=== PATIENT | female | born 1995 | race Two or more races ===

== ENCOUNTER 2020-11-05 13:01 | Emergency (ER) | payer SELFPAY ==
[~2020-11-05] VITALS: Ht 157.5 cm; Wt 54.0 kg
[2020-11-05 13:45] VITALS: BP 125/64
--- NOTE | 2020-11-05 13:52 | PHYS DOC ---
General Adult EDM: Chief Complaint: VAGINAL BLEEDING HPI: HPI: Patient is a 25 year old female 1 para 0 currently 8 weeks presenting today complaining of vaginal bleeding in , symptoms began at 11 AM this morning. Patient denies any injuries. Reports slight abdominal cramping. Denies any nausea, vomiting, diarrhea. Denies any fever, urgency frequency or dysuria. Patient is Swahili speaking and interpretation is provided by me (JOJO CARPENTER APRN) Review of Systems: Review of Systems: Constitutional: Denies fever or chills. [] Eyes: Denies change in visual acuity. [] HENT: Denies nasal congestion or sore throat. [] Respiratory: Denies cough or shortness of breath. [] Cardiovascular: Denies chest pain or edema. [] GI: Reports vaginal bleeding in , abdominal cramping, denies nausea, vomiting, bloody stools or diarrhea. [] : Denies dysuria. [] Musculoskeletal: Denies back pain or joint pain. [] Integument: Denies rash. [] Neurologic: Denies headache, focal weakness or sensory changes. [] [] Psychiatric: Denies depression or anxiety. [] (JOJO CARPENTER PETROLEUM LABORATORY TECHNICIAN) Heart Score: C/O Chest Pain: N/A Risk Factors: Risk Factors: DM, Current or recent (<one month) smoker, HTN, HLP, family history of CAD, obesity. Risk Scores: Score 0 - 3: 2.5% MACE over next 6 weeks - Discharge Home Score 4 - 6: 20.3% MACE over next 6 weeks - Admit for Clinical Observation Score 7 - 10: 72.7% MACE over next 6 weeks - Early Invasive Strategies (JOJO CARPENTER PETROLEUM LABORATORY TECHNICIAN) Allergies: Allergies: Allergies Coded Allergies Type Severity Reaction Last Updated Verified No Known Drug Allergies 11/05/20 No (JOJO CARPENTER APRN) Physical Exam: PE: Constitutional: Well developed, well nourished, no acute distress, non-toxic appearance. [] HENT: Normocephalic, atraumatic, bilateral external ears normal, oropharynx moist, no oral exudates, nose normal. [] Eyes: PERRLA, EOMI, conjunctiva normal, no discharge. [] Neck: Normal range of motion, no tenderness, supple, no stridor. [] Cardiovascular:Heart rate regular rhythm, no murmur [] Lungs & Thorax: Bilateral breath sounds clear to auscultation [] Abdomen: Bowel sounds normal, soft, no tenderness, no masses, no pulsatile masses. [] Pelvic exam External pelvic has small amount of bright red blood, cervix is visualized, there is small amount of bright red blood with clots in the vaginal vault, no CMT. No adnexal tenderness Skin: Warm, dry, no erythema, no rash. [] Back: No tenderness, no CVA tenderness. [] Extremities: No tenderness, no cyanosis, no clubbing, ROM intact, no edema. [] Neurologic: Alert and oriented X 3, normal motor function, normal sensory function, no focal deficits noted. [] Psychologic: Affect normal, judgement normal, mood normal. [] (JOJO CARPENTER APRN) EKG: EKG: [] (JOJO CARPENTER APRN) Radiology/Procedures: Radiology/Procedures: []PROCEDURE: OB <14 WKS W/TV INDICATION: Reason: vag bleeding in preg;PT STATES SHES 8 WEEKS; NO URINE/HCG@TIME OF EXAM / Spl. Instructions: / History: COMPARISON: None. TECHNIQUE: Grayscale and color ultrasound images of the pelvis. Transabdominal and transvaginal images obtained. Transvaginal images were needed to better visualize structures that were limited on transabdominal imaging. FINDINGS: Uterus: 83 x 63 x 52 mm. No intrauterine gestational sac is identified. There is a small hypoechoic lesion at the posterior aspect of the uterus measuring approximately 6 mm. Endometrial stripe is 8 mm. Left maternal ovary is obscured. The right maternal ovary is 23 x 25 x 21 mm. Vascular flow is seen to the right ovary. Small free fluid in the pelvis IMPRESSION: * No intrauterine gestational sac is identified. Follow-up hCG or follow-up ultrasound could be obtained to ensure there is appropriate development of a gestational sac to exclude alternative causes such as early failure or ectopic. * Small free fluid in the pelvis. Electronically signed by: Rosi Wang MD (11/05/2020 2:46 PM) [id number] DICTATED and SIGNED BY: ROSI WANG MD DATE: 11/05/20 [id number] (JOJO CARPENTER APRN) Course & Med Decision Making: Course & Med Decision Making Pertinent Labs and Imaging studies reviewed. (See chart for details) This is a 25-year-old female patient 1 para 0 currently 8 weeks presenting to the ED today with vaginal bleeding in , symptoms began today. UA negative for infection, beta-hCG 97, hemoglobin 8.7 with hematocrit of 28.5, WBC is 3.7 unknown baseline. Blood group O+ OB ultrasound was unable to find an IUP,follow-up hCG or follow-up ultrasound could be obtained to ensure there is appropriate development of a gestational sac to exclude alternative causes such as early failure or ectopic.Small free fluid in the pelvis. Results were communicated to patient, she was instructed to follow-up with an SKID MACHINE OPERATOR in 2 days return to the emergency room in 2 to 3 days and have a beta-hCG rechecked. She was provided pelvic rest instructions and return precautions. (JOJO CARPENTER APRN) Dragon Disclaimer: Dragon Disclaimer: This electronic medical record was generated, in whole or in part, using a voice recognition dictation system. (JOJO CARPENTER APRN) Departure Departure Impression: Primary Impression: Threatened miscarriage in early Disposition: HOME / SELF CARE / HOMELESS Condition: STABLE Referrals: NO PCP (PCP) MCKENZIE AMARAL MD followup in 1-3 days or return to the ED in 2-3 days for Beta HCG Patient Instructions: Threatened Miscarriage, [id number] Additional Instructions: ulipimwa sparkle na [place] mtoto kwa [place]. Nikumaanisha mambo mengi martir mimba iko kidogo mtoto kevinonelizabeth wooda mtoto [place]. Michele shaffer. Attending Signature Attending Signature I have reviewed the PA/STEEPING PRESS OPERATOR's note and plan of care. I was available for consultation as needed during the patient's visit in the emergency department. I agree with the clinical impression, plan, and disposition. (MCKENZIE MULLIGAN DO) JOJO CARPENTER APRN Nov 05, 2020 13:52 MCKENZIE MULLIGAN DO Nov 05, 2020 18:29
[2020-11-05 14:36] LABS: BILIRUBIN,URINE NEGATIVE (NEG); CLARITY,URINE CLEAR; COLOR,URINE YELLOW; NITRITE,URINE NEGATIVE (NEG); PROTEIN,URINE NEGATIVE (NEG-TRACE); UROBILINOGEN,URINE 0.2 mg/dL (0.2 mg/dL)
[2020-11-05 14:43] LABS: BACTERIA,URINE FEW /HPF (0-FEW)
[2020-11-05 14:44] LABS: RBC,URINE OCC /HPF (0-2); WBC,URINE 0 /HPF (0-4)
--- NOTE | 2020-11-05 14:48 | RAD ---
INDICATION: Reason: vag bleeding in preg;PT STATES SHES 8 WEEKS; NO URINE/HCG@TIME OF EXAM / Spl. Ins tructions: / History: COMPARISON: None. TECHNIQUE: Grayscale and color ultrasound images of the pelvis. Transabdominal and transvaginal imag es obtained. Transvaginal images were needed to better visualize structures that were limited on tra nsabdominal imaging. FINDINGS: Uterus: 83 x 63 x 52 mm. No intrauterine gestational sac is identified. There is a small hypoechoic lesion at the posterior aspect of the uterus measuring approximately 6 mm . Endometrial stripe is 8 mm. Left maternal ovary is obscured. The right maternal ovary is 23 x 25 x 21 mm. Vascular flow is seen to the right ovary. Small free fluid in the pelvis IMPRESSION: * No intrauterine gestational sac is identified. Follow-up hCG or follow-up ultrasound could be obt ained to ensure there is appropriate development of a gestational sac to exclude alternative causes s uch as early failure or ectopic. * Small free fluid in the pelvis. Electronically signed by: Robert De Anda MD (11/05/2020 2:46 PM) [id number]
[2020-11-05 14:57] LABS: BASO # 0.1 x10^3/uL (0.0-0.2); BASO % 3 % (0-3); EOS # 0.1 x10^3/uL (0.0-0.7); EOS % 3 % (0-3); HEMATOCRIT 28.5 % (36.0-47.0); LYMPH # 1.3 x10^3/uL (1.0-4.8); LYMPH % 35 % (24-48); MEAN CORPUSCULAR HEMOGLOBIN 15 pg (25-35); MEAN CORPUSCULAR HGB CONC 28 g/dL (31-37); MEAN CORPUSCULAR VOLUME 52 fL (79-100); MONO # 0.4 x10^3/uL (0.0-1.1); MONO % 10 % (0-9); NEUT # 1.8 x10^3/uL (1.8-7.7); NEUT % 50 % (31-73); PLATELET COUNT 255 x10^3/uL (140-400); RED BLOOD COUNT 5.43 x10^6/uL (3.50-5.40); RED CELL DISTRIBUTION WIDTH 22.6 % (11.5-14.5); WHITE BLOOD COUNT 3.7 x10^3/uL (4.0-11.0)
[2020-11-05 14:59] LABS: CALCIUM 9.7 mg/dL (8.5-10.1); CREATININE 0.7 mg/dL (0.6-1.0); POTASSIUM 3.8 mmol/L (3.5-5.1)
[2020-11-05 15:05] LABS: ALBUMIN 4.5 g/dL (3.4-5.0); ALBUMIN/GLOBULIN RATIO 0.9 (1.0-1.7); TOTAL BILIRUBIN 0.2 mg/dL (0.2-1.0); TOTAL PROTEIN 9.3 g/dL (6.4-8.2)
[2020-11-05 15:34] LABS: ANISOCYTOSIS MOD; HYPOCHROMIA MARKED; MICROCYTOSIS MARKED; OVALOCYTES PRESENT; PLT ESTIMATE ADEQUATE (ADEQUATE); POIKILOCYTOSIS SLIGHT
[2020-11-05 15:35] LABS: SCHISTOCYTES OCC; TARGET CELLS OCC
== END 2020-11-05 17:09 | disposition home or self-care (01) ==
LOC: ER 13:01
DX: O20.0 Threatened abortion (principal); Z3A.08 8 weeks gestation of pregnancy
CPT/HCPCS: 36415; 76801; 76817; 80053; 81001; 84702; 85025; 86850; 86900; 86901; 99284